=== PATIENT | male | born 1960 | race Caucasian/White ===

== ENCOUNTER → 2016-09-14 | Outpatient (CLI) | payer BC ==
--- NOTE | 2016-09-14 20:05 | CT ---
EXAMINATION TYPE: CT abdomen pelvis w con DATE OF EXAM: 09/14/2016 COMPARISON: NONE HISTORY: Left sided pain with distention CT DLP: 2119.4 mGycm Automated exposure control for dose reduction was used. TECHNIQUE: Helical acquisition of images was performed from the lung bases through the pelvis. CONTRAST: Performed with Oral Contrast and with IV Contrast, patient injected with 100 mL of Omnipaque 300. FINDINGS: There is mild subsegmental atelectasis at the lung bases. There is no pleural effusion. There is evid ence for some fatty infiltration of the liver. Bile ducts are not dilated. Spleen and pancreas appear normal. Gallbladder is contracted. There is no adrenal mass. Kidneys show satisfactory contrast opacification. There is no hydronephrosi s. There is no retroperitoneal adenopathy. There is no ascites. I see no intestinal wall thickening. There are no dilated loops. Bladder distends smoothly. There is no sign of a pelvic mass. There is no evidence of a hernia. Appendix appears normal. There are mild spondylotic changes in the lumbar spin e. I see no bony destructive process.: IMPRESSION: THERE IS MILD FATTY INFILTRATION OF THE LIVER. NO DILATED DUCTS. I DO NOT SEE A CAUSE FOR LEFT-SIDED PAIN. NORMAL APPENDIX.
== END | disposition home or self-care (01) ==
LOC: RADCTMAIN 17:47
PROVIDERS: ATTEND Internal Medicine
DX: K76.0 Fatty (change of) liver, not elsewhere classified (principal)
CPT/HCPCS: 74177; Q9967

== ENCOUNTER 2016-10-13 10:19 | Day surgery (SDC) | payer BC ==
[~2016-10-13 10:19] MED LIST: LACTATED RINGERS 1,000 ML IV SCH; LIDOCAINE 1% 20 ML VIAL (10MG/ML) FOR IV START INTRADERMA PRN
[2016-10-13 10:30] VITALS: RESP 16; TEMP 97.4
[2016-10-13] MEDS ORDERED: LIDOCAINE 1% 20 ML VIAL (10MG/ML) FOR IV START INTRADERMA ONE (10:31)
[2016-10-13] MEDS ORDERED: PROPOFOL 10 MG/ML 20 ML VIAL IV ONE (10:44)
[2016-10-13] MEDS ORDERED: LIDOCAINE 1% INJ 10MG/ML (20 ML MDV) ONE (10:44)
--- NOTE | 2016-10-13 11:04 | P.PCN ---
Date of Procedure: 10/13/16 Preoperative Diagnosis: Postoperative Diagnosis: Procedure(s) Performed: BRIEF HISTORY: Patient is a 56-year-old pleasant white male, scheduled for an elective colonoscopy as a part of evaluation of intermittent left sided abdominal pain and change in bowel habits for the last few months duration. Last colonoscopy 5 years ago and according to the patient was noted to have colon polyps. PROCEDURE PERFORMED: Colonoscopy and biopsy and snare polypectomy. PREOPERATIVE DIAGNOSIS: Abdominal pain, change in bowel habits Prior history of colon polyps. IV sedation per Anesthesia. PROCEDURE: After informed consent was obtained, the patient, was brought into the endoscopy unit. IV sedation was administered by Anesthesia under continuous monitoring. Digital rectal examination was normal. Initially the Olympus CF- 160 flexible video colonoscope was then inserted in the rectum, gradually advanced into the cecum without any difficulty. Careful examination was performed as the scope was gradually being withdrawn. Ileocecal valve and the appendiceal orifice were visualized and appeared normal. Prep was excellent. Mucosa of the cecum, appeared normal. In the ascending colon there was 1 m broad-based polyp removed by snare polypectomy. In the hepatic flexure there was a 5 mm polyp that was removed by biopsy. The rest of the ascending colon, transverse colon, descending colon, sigmoid colon, and rectum appeared normal. In the sigmoid colon there was another 5 mL polyp that was removed by biopsy. Retroflexion was performed in the rectum and no lesions were seen. The patient tolerated the procedure well. IMPRESSION: 1 cm ascending colon polyp serous was snare polypectomy 5 mm hepatic flexure polyps status post biopsy 5 mm sigmoid colon polyp serous was biopsy RECOMMENDATIONS: Findings of this examination were discussed with the patient as well as his family. He was advised to follow with the biopsy results. If the biopsy shows a tubular adenoma he can have a repeat colonoscopy in 5 years. Implants: Indications for Procedure: Operative Findings: Description of Procedure:
[2016-10-13 11:23] VITALS: BP 111/78; PULSE 62
== END 2016-10-13 11:52 | disposition home or self-care (01) ==
LOC: ORWHC2ENDO 10:19
PROVIDERS: ATTEND Internal Medicine Gastroenterology
DX: D12.2 Benign neoplasm of ascending colon (principal); D12.3 Benign neoplasm of transverse colon; K63.5 Polyp of colon; Z86.010 Personal history of colon polyps; K21.9 Gastro-esophageal reflux disease without esophagitis; Z79.1 Long term (current) use of non-steroidal anti-inflammatories (NSAID); Z79.899 Other long term (current) drug therapy
CPT/HCPCS: 88305; 45380; 45385; J2001; J2704

== ENCOUNTER → 2020-02-27 | Outpatient (CLI) | payer BC ==
--- NOTE | 2020-02-27 14:02 | XR ---
Cervical spine Limited HISTORY: Neck pain 4 views of the cervical spine correlated to prior exam 03/09/2015 Odontoid view is limited. Lateral exam shows some motion on the tremors view. There is multilevel spo ndylosis present. Cervical vertebral bodies show preserved height, alignment, bone mineralization. Lo ss of disc height is present at C5-6 and C6-7. Loss of normal lordosis may be due to muscle spasm. IMPRESSION: Degenerative disc disease with limitations as described..
== END | disposition home or self-care (01) ==
LOC: RADXRYALE 13:05
PROVIDERS: ATTEND Internal Medicine
DX: M50.30 Other cervical disc degeneration, unspecified cervical region (principal)
CPT/HCPCS: 72040